=== PATIENT | male | born 1965 | race Caucasian/White ===

== ENCOUNTER 2019-03-21 11:24 | Observation (INO) ==
[2019-03-21] MEDS ORDERED: Aspirin 81 MG TAB.CHEW PO STA (12:08)
[2019-03-21 12:09] LABS: Basophils % 0.2 %; Eosinophils # 0.1 K/mcL (0.0-0.6); Eosinophils % 0.7 %; Hematocrit 43.2 % (37.5-50.1); Hemoglobin 14.9 g/dL (12.9-16.9); Immature Granulocytes % 0.7 % (0-4); Lymphocytes # 1.6 K/mcL (0.6-4.6); Lymphocytes % 18.8 %; Mean Corpuscular HGB Conc 34.5 g/dL (31.6-35.5); Mean Corpuscular Hemoglobin 28.5 pg (28.0-33.3); Mean Corpuscular Volume 82.8 fL (83.0-100.0); Mean Platelet Volume 10.4 fL (9.4-12.4); Monocytes # 0.7 K/mcL (0.0-1.3); Monocytes % 7.9 %; Neutrophils # 6.2 K/mcL (1.6-8.9); Platelet Count 193 K/mcL (140-400); Red Blood Count 5.22 M/mcL (4.19-5.50); Red Cell Distribution Width 12.3 % (11.5-14.5); Segmented Neutrophils % 71.7 %; White Blood Count 8.6 K/mcL (4.3-11.1)
[2019-03-21 12:25] LABS: BUN/Creatinine Ratio 28 (6-26); Blood Urea Nitrogen 25 mg/dL (6-20); Calcium 9.8 mg/dL (8.6-10.3); Carbon Dioxide 28 mEq/L (23-29); Chloride 105 mEq/L (98-107); Glucose 144 mg/dL (70-105); Osmolality,Calculated 293 (280-300); Potassium 4.2 mEq/L (3.5-5.1); Sodium 138 mEq/L (136-145); Troponin I < 0.03 ng/mL (< 0.04); eGFR For African Americans > 60 (> 60); eGFR For Non-African Americans > 60 (> 60)
[2019-03-21] MEDS ORDERED: Nitroglycerin 0.4 MG TAB.SUBL SL PRN ×2 (12:30→16:06)
[2019-03-21] MEDS ORDERED: Ondansetron 4 MG/2 ML VIAL IVP PRN (16:02)
[2019-03-21] MEDS ORDERED: Naloxone 0.4 MG/ML INJ IVP PRN (16:02)
[2019-03-21] MEDS ORDERED: *HR* Heparin 5,000 UNIT/ML VIAL IVP PRN ×2 (16:07)
[2019-03-21] MEDS ORDERED: *HR* Heparin 5,000 UNIT/ML VIAL IVP ONE (16:07)
[2019-03-21] MEDS ORDERED: Nitroglycerin 1 INCH/GM PACKET TP ONE (16:12)
[2019-03-21] MEDS ORDERED: Heparin 25,000 UNIT/250 ML D5W 25,000 UNIT/250 ML IV.SOLN IVC SCH (16:15)
[2019-03-21] MEDS ORDERED: Dextrose Gel 15 GM/37.5 ML TUBE PO PRN ×2 (16:17)
[2019-03-21] MEDS ORDERED: *HR* Dextrose 50 % in Water (Syg) 50 ML SYRINGE IVP PRN (16:17)
[2019-03-21] MEDS ORDERED: D5% in Water 1,000 ML IVC PRN (16:17)
[2019-03-21 16:59] LABS: Hematocrit 43.7 % (37.5-50.1); Hemoglobin 14.8 g/dL (12.9-16.9); Mean Corpuscular HGB Conc 33.9 g/dL (31.6-35.5); Mean Corpuscular Volume 85.7 fL (83.0-100.0); Mean Platelet Volume 10.4 fL (9.4-12.4); Platelet Count 169 K/mcL (140-400); Red Cell Distribution Width 12.4 % (11.5-14.5); White Blood Count 9.5 K/mcL (4.3-11.1)
[2019-03-21 17:05] LABS: Heparin anti-factor XA UFH 0.02 IU/mL (0.30-0.70); Prothrombin Time 11.7 Seconds (9.4-12.1)
[2019-03-21] MEDS: Insulin LISPRO 300 UNITS/3 ML VIAL SQ SCH (17:39)
[2019-03-21 17:50] LABS: Estimated Average Glucose 189 mg/dl
[2019-03-21] MEDS ORDERED: Insulin LISPRO 300 UNITS/3 ML VIAL SQ SCH (21:00)
[2019-03-22 00:54] LABS: Alanine Aminotransferase 24 Units/L (7-52); Albumin/Globulin Ratio 1.5 (1.1-2.2); Alkaline Phosphatase 60 Units/L (34-104); Aspartate Amino Transferase 17 Units/L (13-39); BUN/Creatinine Ratio 26 (6-26); Bilirubin,Total 0.4 mg/dL (0.3-1.0); Blood Urea Nitrogen 27 mg/dL (6-20); Calcium 9.4 mg/dL (8.6-10.3); Carbon Dioxide 28 mEq/L (23-29); Chloride 103 mEq/L (98-107); Chol/HDL Ratio 2.3 (0-4.9); Cholesterol 86 mg/dL (< 200); Globulin 2.7 g/dL (2.4-3.5); Glucose 188 mg/dL (70-105); HDL Cholesterol 37 mg/dL (40-59); LDL Cholesterol,Calculated 26 mg/dL (0-99); Osmolality,Calculated 290 (280-300); Potassium 3.7 mEq/L (3.5-5.1); Sodium 135 mEq/L (136-145); Total Protein 6.7 g/dL (6.4-8.9); Triglycerides 117 mg/dL (< 150); eGFR For African Americans > 60 (> 60); eGFR For Non-African Americans > 60 (> 60)
[2019-03-22] MEDS ORDERED: Regadenoson 0.4 MG/5 ML SYRINGE IVP ONE (06:08)
[2019-03-22] MEDS: Insulin LISPRO 300 UNITS/3 ML VIAL SQ SCH ×2 (07:30→11:38)
[2019-03-22] MEDS ORDERED: Aspirin 81 MG TAB.CHEW PO SCH (09:00)
[2019-03-22 09:30] VITALS: BP 158/98
== END 2019-03-22 15:17 | disposition home or self-care (01) ==
LOC: 3BNU 11:24 → EMEROOARM 11:24 → 3BNU 16:12
PROVIDERS: ADMIT Internal Medicine; ATTEND Internal Medicine